=== PATIENT | female | born 1960 | race Caucasian/White ===

== ENCOUNTER → 2017-04-08 | Outpatient (CLI) | payer OTHER ==
[2014-07-10 09:15] VITALS: BP 124/85
[~2017-04-08] MED LIST: BYSTOLIC5 MG PO
--- NOTE | 2017-04-08 11:42 | KCIC ---
Bilateral breast ultrasound: Reason for examination: Follow-up nodules. Comparison is made to previous study dated 08/11/2016. Bilateral whole breast ultrasound including evaluation of all 4 quadrants and the retroareolar and axillary regions of both breasts was performed. Right breast continues to show a small hypoechoic nodule in the 9:00 position 3 cm from the nipple measuring 4.7 mm in greatest dimension which is unchanged. No other cystic or solid lesions are seen. No abnormal lymph nodes are seen in the right axilla. Left breast continues to show a hypoechoic circumscribed lesion at the 2:00 position 5 cm from nipple measuring 1.5 cm in greatest dimension which shows no change. There also continues to be a small hypoechoic lesion in the 2:30 position 6 cm from the nipple measuring 4.4 mm in size which shows a slight decrease in size and probably represents a fibrocystic lesion. No new cystic or solid lesions are seen. No abnormal lymph nodes are seen in the left axilla. IMPRESSION: No interval change in size of the nodules in the right or left breast. Recommend continued 6 month follow-up to be performed at the time of bilateral mammograms. BI-RADS Category 3: Probably Benign. "Our facility is accredited by the [employer] Mammography Program." This patient's information has been entered into a reminder system for the patient to be notified with the results of her examination and a target date for the next mammogram. Electronically signed by: Imani Cross MD (04/08/2017 11:39 AM)
== END | disposition home or self-care (01) ==
LOC: KCIC US 07:47
PROVIDERS: ATTEND Family Medicine
DX: N63 Unspecified lump in breast (principal)
CPT/HCPCS: 76641

== ENCOUNTER → 2018-01-27 | Outpatient (CLI) | payer OTHER | END | disposition home or self-care (01) | LOC: KCIC US 08:00 | DX: N64.89 Other specified disorders of breast (principal); D25.9 Leiomyoma of uterus, unspecified; I86.2 Pelvic varices; N83.292 Other ovarian cyst, left side | CPT/HCPCS: 76641; 76830; 76856; 77066; G0279 ==

== ENCOUNTER → 2019-06-15 | Outpatient (CLI) | payer OTHER ==
[2014-07-10 09:15] VITALS: BP 124/85
--- NOTE | 2019-06-15 11:04 | KCIC ---
EXAM: Bilateral diagnostic mammogram; bilateral breast sonogram. HISTORY: 58-year-old female presents for follow-up evaluation of suspected benign appearing lesions within the breast demonstrated on a sonogram dated 01/27/2018. The patient did not return at the recommended 6 month follow-up of interval and is due for bilateral mammography. TECHNIQUE: Full-field digital craniocaudal and mediolateral oblique views of both breasts are obtained for evaluation. Computer aided detection with [employer] software version 9.3 was applied. Sonographic imaging of both breasts including all 4 quadrants and the retroareolar regions was performed. COMPARISON: 01/27/2018 and 08/11/2016 BREAST PARENCHYMAL DENSITY: Level C - Heterogeneously dense. FINDINGS: There is no new suspicious mass, microcalcification or region of architectural distortion. There is stable areas of nodularity and asymmetry within both breasts, allowing for differences in patient positioning and compression technique. Sonographic imaging of the right breast demonstrates a tiny hypoechoic lesion without internal blood flow at the 9:00 position 3 cm from the nipple measuring 3 x 3 x 2 mm, minimally changed compared to the prior study. There are dilated ducts within the right breast. No intraductal lesion is seen. Sonographic imaging of the left breast demonstrates a 1.4 cm circumscribed hypoechoic lesion without blood flow at the 2:00 position 5 cm from the nipple. There is also a tiny hypoechoic lesion measuring 4 mm at the 2:30 position 6 cm from the nipple. IMPRESSION: 1. No new suspicious mammographic finding. 2. No significant change in benign-appearing hypoechoic lesions within both breasts. The greater than 1 year course of stability favors a benign etiology such as complicated cysts or fibroadenomas. There is no new suspicious sonographic finding. 3. BI-RADS Category 2: Benign finding(s). RECOMMENDATION: Annual mammography is recommended. If your mammogram demonstrates that you have dense breast tissue, which could hide abnormalities, and if you have other risk factors for breast cancer that have been identified, you might benefit from supplemental screening tests that may be suggested by your ordering physician. Dense breast tissue, in and of itself, is a relatively common condition. This information is not provided to cause undue concern, but rather to raise your awareness and to promote discussion with your physician regarding the presence of other risk factors, in addition to dense breast tissue. A report of your mammography results will be sent to you and your physician. You should contact your physician if you have any questions or concerns regarding this report. Mammography is a sensitive method for finding small breast cancers, but it does not detect them all and is not a substitute for careful clinical examination. A negative mammogram does not negate a clinically suspicious finding and should not result in delay in biopsying a clinically suspicious abnormality. PQRS compliance statement - Patient information was entered into a reminder system with a target due date for the next mammogram. "Our facility is accredited by the [employer] Mammography Program." Electronically signed by: Taylor Lyons MD (06/15/2019 11:00 AM) [id number]
--- NOTE | 2019-06-15 13:01 | KCIC ---
Examination: PELVIS W/TV History: Right-sided pelvic pain Comparison/Correlation: 01/27/2018 pelvic ultrasound exam Findings: Transabdominal and transvaginal pelvic ultrasound exam was performed. Transvaginal technique was utilized to better assess the adnexal structures. Uterus measures 5.4 cm x 3.8 cm x 4.1 cm. Endometrial thickness of 0.3 cm noted. Produces described cystic structure involving the endometrial cavity is not seen. Fibroid involvement of the myometrium is noted with the largest of these measuring up to 2.1 cm diameter. 2 additional fibroids are also present with larger of these measuring up to 1.7 cm diameter. Retroverted uterus noted. Right ovary measures 2.4 cm x 1.2 cm x 1.9 cm. Left ovary measures 2.4 cm x 1.3 cm x 2.7 cm. Flow involving the ovaries is noted bilaterally. Left adnexal cyst measuring 2.1 cm x 1.5 cm x 2.2 cm is present. This is mildly increased since the prior exam. Impression: Fibroid involvement of the uterus. Left adnexal follicle is present with mild increase in the interval. Consider continued interval follow-up to assess for resolution. Electronically signed by: Rosas Woody MD (06/15/2019 12:58 PM) [facility]
== END | disposition home or self-care (01) ==
LOC: KCIC US 08:18
PROVIDERS: ATTEND Family Medicine
DX: N64.89 Other specified disorders of breast (principal); N85.4 Malposition of uterus; D25.9 Leiomyoma of uterus, unspecified; N83.201 Unspecified ovarian cyst, right side
CPT/HCPCS: 76641; 76830; 76856; 77066

== ENCOUNTER → 2019-12-13 | Day surgery (SDC) | payer OTHER ==
[~2019-12-13] MED LIST changes: +HYDROmorphone 2 MG/ML VIAL IV PRN; +IBUP100O25 PO; +IV RINGERS,LACTATED 1000ML 1,000 ML IV SCH; +LIDOCAINE 1% PF 2 ML VIAL. ID PRN; +MORPHINE SULFATE 2 MG/ML VIAL. IV PRN; +ONDANSETRON PF 4 MG/2 ML VIAL. IV PRN; +PROCHLORPERAZINE 10 MG/2 ML VIAL. IV PRN; +PROPOFOL 20 ML IV ONE; +ZOLP10TA PO; +fentaNYL PF VIAL 100 MCG/2 ML VIAL IV PRN
[2019-12-13 10:02] VITALS: BP 129/80
--- NOTE | 2019-12-13 10:11 | PREOP HP ---
DATE OF SERVICE: 12/13/2019 PREOPERATIVE HISTORY AND PHYSICAL REQUESTING PHYSICIAN: Huy Lake. PRIMARY CARE PHYSICIAN: Huy Lake. REASON FOR PROCEDURE: Colorectal cancer screening as well as family history of colon cancer, and personal history of polyps. HISTORY OF PRESENT ILLNESS: This is a 59-year-old female who presents today for colorectal cancer screening. Her last colonoscopy was in 2013. She does have a family history of colon cancer. ALLERGIES: HYDROCODONE. MEDICATIONS: 1. Bystolic. 2. Ambien. 3. Ibuprofen. PAST MEDICAL HISTORY: Hypertension. FAMILY MEDICAL HISTORY: Sister, grandmother and grandfather with colon cancer. SOCIAL HISTORY: No tobacco, alcohol or IV drug abuse. REVIEW OF SYSTEMS: A 13-point review of systems was done. It is positive for constipation, but is otherwise negative. PHYSICAL EXAMINATION: VITAL SIGNS: She is afebrile. Her vital signs are stable. GENERAL: She is a well-developed, well-nourished female, in no apparent distress. HEENT: Oropharynx is clear. ABDOMEN: Soft, nontender, and nondistended. NEUROLOGIC: She is awake, alert and oriented x 3. ASSESSMENT AND PLAN: 1. Colorectal cancer screening. 2. Family history of colon cancer. 3. Personal history of colon polyps. RUDDY DIEZ MD DR: KIM/zac JOB#: [id number] / [id number]
--- NOTE | 2019-12-14 11:07 | PATHOLOGY ---
[facility] Accession Number: [id number] . 01 Material submitted: . colon - TRANSVERSE COLON POLYP. Modifiers: transverse . 01 Clinical history: . Screening . 02 Diagnosis: Colon biopsies, transverse colon polyp: - Polypoid segments of colonic mucosa showing edema, mild acute and chronic inflammation, and a mucosal-associated lymphoid aggregate. (JPM:[facility] 12/14/2019) [facility] 12/14/2019 1017 Local . 02 Comment: Sections of the transverse colon biopsy reveal polypoid segments of colonic mucosa showing edema and mild acute and chronic inflammation within the lamina propria. There is a mucosa-associated lymphoid aggregate. There are no adenomatous changes of evidence of malignancy. (JPM:[facility] 12/14/2019) . 02 Electronically signed: . Alexx Rodriges MD, Pathologist NPI- [id number] . 01 Gross description: . The specimen is received in formalin, labeled "Janeth Suderman, transverse colon polyp". Received are two segments of pale perry soft tissue measuring 0.3 cm each in maximum dimensions. The specimen is submitted entirely in cassette A1. (CAA; 12/13/2019) QAC/QAC 12/13/2019 1841 Local . 02 Pathologist provided ICD-10: K52.9 . 02 CPT . 642769 Specimen Comment: A courtesy copy of this report has been sent to [phone], [phone]- Specimen Comment: [id number] Specimen Comment: Report sent to / DR DUBOSE Specimen Comment: A duplicate report has been generated due to demographic updates. Performed at: [address], [place], [place] [id number] MD Khris De Oliveira MD Phone: [phone] Performed at: 02 [facility] [address] [place] [id number] MD Alexx Rodriges MD Phone: [phone]
== END ==
LOC: ENDOS 08:59
PROVIDERS: ATTEND Internal Medicine Gastroenterology
DX: Z12.11 Encounter for screening for malignant neoplasm of colon (principal); K63.5 Polyp of colon; K64.0 First degree hemorrhoids; Z88.5 Allergy status to narcotic agent; Z80.0 Family history of malignant neoplasm of digestive organs
CPT/HCPCS: 45380; 88305; J2704

== ENCOUNTER → 2020-07-18 | Outpatient (CLI) | payer OTHER ==
[2019-12-13 10:02] VITALS: BP 129/80
[~2020-07-18] MED LIST changes: -HYDROmorphone 2 MG/ML VIAL IV PRN; -IV RINGERS,LACTATED 1000ML 1,000 ML IV SCH; -LIDOCAINE 1% PF 2 ML VIAL. ID PRN; -MORPHINE SULFATE 2 MG/ML VIAL. IV PRN; -ONDANSETRON PF 4 MG/2 ML VIAL. IV PRN; -PROCHLORPERAZINE 10 MG/2 ML VIAL. IV PRN; -PROPOFOL 20 ML IV ONE; -fentaNYL PF VIAL 100 MCG/2 ML VIAL IV PRN
== END ==
LOC: SPEC 13:42
PROVIDERS: ATTEND Nurse Practitioner Women's Health
DX: Z01.419 Encounter for gynecological examination (general) (routine) without abnormal findings (principal)
CPT/HCPCS: 88175

== ENCOUNTER → 2020-07-24 | Outpatient (CLI) | payer OTHER ==
[2019-12-13 10:02] VITALS: BP 129/80
[2020-07-24 09:12] LABS: BASO % 0 % (0-3); EOS % 0 % (0-3); HEMATOCRIT 39.8 % (36.0-47.0); HEMOGLOBIN 13.5 g/dL (12.0-15.5); LYMPH # 1.6 x10^3/uL (1.0-4.8); LYMPH % 25 % (24-48); MEAN CORPUSCULAR HEMOGLOBIN 33 pg (25-35); MEAN CORPUSCULAR HGB CONC 34 g/dL (31-37); MEAN CORPUSCULAR VOLUME 96 fL (79-100); MONO # 0.4 x10^3/uL (0.0-1.1); MONO % 6 % (0-9); NEUT # 4.4 x10^3/uL (1.8-7.7); NEUT % 69 % (31-73); PLATELET COUNT 234 x10^3/uL (140-400); RED BLOOD COUNT 4.13 x10^6/uL (3.50-5.40); RED CELL DISTRIBUTION WIDTH 13.5 % (11.5-14.5); WHITE BLOOD COUNT 6.4 x10^3/uL (4.0-11.0)
[2020-07-24 09:17] LABS: ALBUMIN 3.9 g/dL (3.4-5.0); ALBUMIN/GLOBULIN RATIO 1.1 (1.0-1.7); CALCIUM 9.1 mg/dL (8.5-10.1); CREATININE 0.7 mg/dL (0.6-1.0); GFR 86.2; POTASSIUM 4.4 mmol/L (3.5-5.1); TOTAL BILIRUBIN 1.3 mg/dL (0.2-1.0); TOTAL PROTEIN 7.4 g/dL (6.4-8.2)
[2020-07-24 09:21] LABS: CHOLESTEROL/HDL RATIO 1.7
--- NOTE | 2020-07-24 09:29 | RAD ---
PELVIS COMPLETE History: Reason: PELVIC PAIN / Spl. Instructions: / History: Comparison: January 27, 2018. Technique: Grayscale and color Doppler imaging of the pelvis was performed using transabdominal and transvaginal technique. Findings: The uterus measures 6.6 x 3.6 x 3.1 cm. Several heterogeneous uterine masses largest measures 2.5 cm, slightly increased compared to prior measured 2.1 cm.. The endometrial stripe measures 0.5 mm. Right ovary measures 2.5 x 1.5 x 1.4 cm. Left ovary measures 2.2 x 1.4 x 1.4 cm. Unchanged size of left paraovarian cystic lesion measures 1.4 x 1.6 cm. Normal Doppler flow to the ovaries. No adnexal masses are seen. IMPRESSION: 1. Several uterine fibroids, slightly increased compared to prior. 2. Unchanged left paraovarian cystic lesion. Electronically signed by: Jordan Rutherford DO (07/24/2020 9:26 AM) [id number]
--- NOTE | 2020-07-24 14:26 | RAD ---
DATE: 07/24/2020 8:10 AM EXAM: MAMMO KATHY DIAMaggie BILAT HISTORY: History of breast mass COMPARISON: June 15, 2019 Bilateral CC and MLO views of the breasts were performed. Bilateral breast tomosynthesis was performed in CC and MLO projections. This study was interpreted with the benefit of Computerized Aided Detection (CAD). FINDINGS: Breast Density: HETERO The breast parenchyma Is heterogeneously dense, which could reduce sensitivity of mammography. Breast parenchyma level C Unchanged left upper outer breast mass compared to prior previously identified as cysts on ultrasound. No suspicious masses, microcalcifications or architectural distortion is present to suggest malignancy in either breast. The visualized axillae are unremarkable. IMPRESSION: Stable bilateral mammograms. No mammographic evidence of malignancy. BI-RADS CATEGORY: 2 BENIGN FINDING(S) RECOMMENDED FOLLOW-UP: Annual screening mammography is recommended, unless clinically indicated sooner based on symptoms or change in physical exam. PQRS compliance statement: Patient information was entered into a reminder system with a target due date 12 months for the next mammogram. Mammography is a sensitive method for finding small breast cancers, but it does not detect them all and is not a substitute for careful clinical examination. A negative mammogram does not negate a clinically suspicious finding and should not result in delay in biopsying a clinically suspicious abnormality. "Our facility is accredited by the [employer] Mammography Program." ALEXD
== END ==
LOC: US 07:28
PROVIDERS: ATTEND Nurse Practitioner Women's Health
DX: Z01.419 Encounter for gynecological examination (general) (routine) without abnormal findings (principal); R92.8 Other abnormal and inconclusive findings on diagnostic imaging of breast; D25.9 Leiomyoma of uterus, unspecified; N83.202 Unspecified ovarian cyst, left side
CPT/HCPCS: 36415; 76856; 77066; 80053; 80061; 82306; 84443; 85025; G0279; 77062

== ENCOUNTER → 2020-07-29 | Outpatient (CLI) | payer OTHER ==
[2019-12-13 10:02] VITALS: BP 129/80
[2020-07-29 20:09] LABS: CA 125 16.8 U/mL (0.0-38.1)
[2020-07-29 21:07] LABS: ESTRADIOL LEVEL <5.0 pg/mL (.)
== END ==
LOC: LAB 12:33
PROVIDERS: ATTEND Nurse Practitioner Women's Health
DX: N83.209 Unspecified ovarian cyst, unspecified side (principal)
CPT/HCPCS: 36415; 82670; 86304; 86305

== ENCOUNTER → 2021-08-28 | Outpatient (CLI) | payer OTHER ==
[2019-12-13 10:02] VITALS: BP 129/80
[~2021-08-28] MED LIST changes: +IBUP-1739 PO; -IBUP100O25 PO
--- NOTE | 2021-08-28 14:12 | KCIC ---
Bilateral digital screening mammograms with 3-D tomosynthesis: Reason for examination: Routine screening. Comparison is made to previous studies dated back to 02/26/2014. Bilateral mammograms in CC and oblique projections were obtained with 2-D imaging and 3-D tomosynthes is imaging on a Siemens Inspiration unit and reviewed on the workstation. Interpretation was made wit h the benefit of CAD. The skin and nipples show no abnormalities. No abnormal axillary lymph nodes are seen. The breast par enchyma is heterogeneously dense. (Breast density: Category C.) There continues to be a nodule integration developer ior laterally at the 2:00 C position of the left breast which is stable. There are no new dominant ma sses, suspicious calcifications or architectural distortion. A few benign calcifications again seen. Impression: No evidence of malignancy. Recommend routine screening. Your patient's mammogram demonstrates that she has dense breast tissue (breast density category C or D), which could hide abnormalities, and if she has other risk factors for breast cancer that have bee n identified, she might benefit from supplemental screening tests that may be suggested by you as her ordering physician. Dense breast tissue, in and of itself, is a relatively common condition. Therefo re, this information is not provided to cause undue concern, but rather to raise your awareness and t o promote discussion with your patient regarding the presence of other risk factors, in addition to d ense breast tissue. Your patient's mammography results will be sent to her. BI-RAD Category 2: Benign. "Our facility is accredited by the [employer] Mammography Program." This patient's information has been entered into a reminder system for the patient to be notified wit h the results of her examination and a target date for the next mammogram. Electronically signed by: Imani Cross MD (08/28/2021 2:10 PM) [id number]
== END ==
LOC: KCIC 12:26
PROVIDERS: ATTEND Obstetrics & Gynecology
DX: Z12.31 Encounter for screening mammogram for malignant neoplasm of breast (principal)
CPT/HCPCS: 77063; 77067

== ENCOUNTER → 2021-08-28 | Outpatient (CLI) | payer OTHER ==
[2019-12-13 10:02] VITALS: BP 129/80
[2021-08-28 10:13] LABS: BASO % 0 % (0-3); EOS % 1 % (0-3); HEMATOCRIT 42.4 % (36.0-47.0); LYMPH # 1.4 x10^3/uL (1.0-4.8); LYMPH % 27 % (24-48); MEAN CORPUSCULAR HEMOGLOBIN 32 pg (25-35); MEAN CORPUSCULAR HGB CONC 33 g/dL (31-37); MEAN CORPUSCULAR VOLUME 97 fL (79-100); MONO # 0.3 x10^3/uL (0.0-1.1); MONO % 6 % (0-9); NEUT # 3.5 x10^3/uL (1.8-7.7); NEUT % 67 % (31-73); PLATELET COUNT 231 x10^3/uL (140-400); RED BLOOD COUNT 4.38 x10^6/uL (3.50-5.40); RED CELL DISTRIBUTION WIDTH 13.5 % (11.5-14.5); WHITE BLOOD COUNT 5.2 x10^3/uL (4.0-11.0)
[2021-08-28 10:50] LABS: ALBUMIN 4.1 g/dL (3.4-5.0); ALBUMIN/GLOBULIN RATIO 1.2 (1.0-1.7); CHOLESTEROL/HDL RATIO 1.6; CREATININE 0.7 mg/dL (0.6-1.0); GFR 85.9; POTASSIUM 4.7 mmol/L (3.5-5.1); TOTAL BILIRUBIN 1.3 mg/dL (0.2-1.0); TOTAL PROTEIN 7.5 g/dL (6.4-8.2)
--- NOTE | 2021-08-28 14:12 | RAD ---
US ABDOMEN COMPLETE History: Reason: RT SIDED ABD PAIN / Spl. Instructions: / History: Comparison: None. Technique: Sonographic examination of the abdomen was performed and multiple grayscale and color Dopp ler static images were obtained. Findings: Liver demonstrates normal echogenicity. The liver measures 12.8 cm. Portal flow is patent. No cholelithiasis, gallbladder wall thickening or pericholecystic fluid. Common bile duct measures 2 mm in diameter. Visualized pancreas unremarkable. The right kidney measures 11.4 x 6.0 x 5.1 cm. No hydronephrosis. Right renal cyst measures 3.7 cm. N o follow-up imaging is recommended per consensus recommendations based on imaging criteria. The left kidney measures 9.6 x 5.2 x 6.1 cm. No hydronephrosis. The spleen measures 10.7 cm. Visualized portions of the abdominal aorta and IVC are normal. IMPRESSION: 1. Unremarkable abdominal ultrasound. Electronically signed by: Jordan Rutherford DO (08/28/2021 2:10 PM) [id number]
--- NOTE | 2021-08-28 14:20 | RAD ---
US PELVIS W/TV History: Reason: PELVIC PAIN / Spl. Instructions: / History: Comparison: July 24, 2020 Technique: Grayscale and color Doppler imaging of the pelvis was performed using transabdominal and t ransvaginal technique. Findings: The uterus measures 5.3 x 3.8 x 2.9 cm. Heterogeneous myometrial mass measures 1.8 x 1.6 x 1.4 cm. A dditional heterogeneous myometrial mass measures 1.5 x 1.5 x 1.5 cm. The endometrial stripe measures 3 mm. Minimal fluid within the endometrial canal. Right ovary measures 1.5 x 1.7 x 1.9 cm. Left ovary measures 2.5 x 2.0 x 1.2 cm. Previously seen left paraovarian cystic lesion is no longer i dentified. Prominent left adnexal vasculature, increased compared to prior. Normal Doppler flow to the ovaries. IMPRESSION: 1. Uterine fibroids, similar compared to prior. 2. Prominent left ovary adnexal vasculature, can be seen with pelvic congestion syndrome. Electronically signed by: Jordan Rutherford DO (08/28/2021 2:18 PM) [id number]
[2021-08-29 00:08] LABS: HEMOGLOBIN A1C 5.3 % (4.8-5.6)
== END ==
LOC: US 09:23
PROVIDERS: ATTEND Nurse Practitioner Women's Health
DX: N28.1 Cyst of kidney, acquired (principal); D25.9 Leiomyoma of uterus, unspecified
CPT/HCPCS: 36415; 76700; 76830; 76856; 80053; 80061; 83036; 84443; 85025